=== PATIENT | female | born 1955 | race African-American/Black ===

== ENCOUNTER 2018-04-08 10:04 | Emergency (ER) | payer MEDICAID ==
[~2018-04-08] VITALS: Ht 154.9 cm; Wt 82.0 kg
[~2018-04-08 10:04] MED LIST: ASPI-1159 PO; ATOR20TA PO; CLOP75TA16 PO; COR3 PO; LISI10TA5 PO
[2018-04-08] MEDS ORDERED: KETOROLAC 60MG/2ML VIAL IM ONE (11:30)
[2018-04-08] MEDS ORDERED: TRAMADOL 50MG TABLET PO ONE (14:45)
[2018-04-08 14:51] VITALS: BP 132/59
== END 2018-04-08 15:09 | disposition home or self-care (01) ==
LOC: ER 10:04
DX: M79.604 Pain in right leg (principal); I12.0 Hypertensive chronic kidney disease with stage 5 chronic kidney disease or end stage renal disease; E11.22 Type 2 diabetes mellitus with diabetic chronic kidney disease; N18.6 End stage renal disease; Z88.0 Allergy status to penicillin; Z88.8 Allergy status to other drugs, medicaments and biological substances; Z99.2 Dependence on renal dialysis; Z79.82 Long term (current) use of aspirin
CPT/HCPCS: 73502; 73630; 96372; 99284; J1885

== ENCOUNTER 2018-04-10 01:18 | Emergency (ER) | payer MEDICAID ==
[~2018-04-10] VITALS: Ht 149.9 cm; Wt 82.0 kg
[2018-04-10] MEDS ORDERED: SODIUM CHLORIDE 0.9% 1,000 ML IV ONE (02:28)
[2018-04-10 03:01] LABS: HEMATOCRIT. 41.4 % (36.0-48.0); HEMOGLOBIN. 13.4 g/dL (12.0-16.0); MEAN CORPUSCULAR HEMOGLOBIN 29.5 pg (28.0-32.0); MEAN CORPUSCULAR VOLUME 91.1 fL (81.0-99.0); MEAN PLATELET VOLUME 10.2 fl (7.4-10.4); PLATELET 95 x1000/uL (130-400); RED BLOOD CELL COUNT 4.54 mill/uL (4.2-5.4); RED CELL DISTRIBUTION WIDTH 17.3 % (11.6-14.6)
[2018-04-10] MEDS ORDERED: MORPHINE SULFATE 4 MG/ML CPJ (NOT FOR IM USE) IV NR (03:45)
[2018-04-10 04:24] LABS: NUCLEATED RED BLOOD CELLS 1 /100 WBC
[2018-04-10 04:25] LABS: PLATELET ESTIMATE SLIGHTLY DECREASED
[2018-04-10] MEDS ORDERED: OXYCODONE HCL 5MG TABLET PO ONE (05:45)
[2018-04-10 07:00] VITALS: BP 158/73
== END 2018-04-10 07:00 | disposition home or self-care (01) ==
LOC: ER 01:18
DX: G57.91 Unspecified mononeuropathy of right lower limb (principal); R60.0 Localized edema; E11.22 Type 2 diabetes mellitus with diabetic chronic kidney disease; E11.65 Type 2 diabetes mellitus with hyperglycemia; I13.11 Hypertensive heart and chronic kidney disease without heart failure, with stage 5 chronic kidney disease, or end stage renal disease; N18.6 End stage renal disease; Z99.2 Dependence on renal dialysis; Z88.0 Allergy status to penicillin; Z87.891 Personal history of nicotine dependence; Z91.14 Patient's other noncompliance with medication regimen; Z88.3 Allergy status to other anti-infective agents
CPT/HCPCS: 36415; 80048; 85025; 93971; 96361; 96374; 99285; J2270; J7030

== ENCOUNTER 2019-07-04 12:31 | Emergency (ER) | payer MEDICARE, MEDICAID ==
[~2019-07-04] VITALS: Ht 160 cm; Wt 90.0 kg
[~2019-07-04 12:31] MED LIST changes: -ASPI-1159 PO; +ASPI-1497 PO; -CLOP75TA16 PO; +CLOP75TA4 PO
[2019-07-04] MEDS ORDERED: MORPHINE SULFATE 4 MG/ML CPJ (NOT FOR IM USE) IV STA (15:33)
[2019-07-04] MEDS ORDERED: ONDANSETRON HCL 4MG/2ML INJ IV STA (15:33)
[2019-07-04] MEDS ORDERED: HYDROCODONE/ACETAMINOPHEN 5/325MG TABLET PO ONE (18:00)
[2019-07-04 18:39] VITALS: BP 136/59
== END 2019-07-04 18:42 | disposition home or self-care (01) ==
LOC: ER 12:31
DX: S52.501A Unspecified fracture of the lower end of right radius, initial encounter for closed fracture (principal); M85.841 Other specified disorders of bone density and structure, right hand; E11.9 Type 2 diabetes mellitus without complications; I11.9 Hypertensive heart disease without heart failure; W01.0XXA Fall on same level from slipping, tripping and stumbling without subsequent striking against object, initial encounter; Y93.9 Activity, unspecified; Y92.9 Unspecified place or not applicable; Z88.0 Allergy status to penicillin; Z88.8 Allergy status to other drugs, medicaments and biological substances; Z79.82 Long term (current) use of aspirin
CPT/HCPCS: 29125; 73110; 73130; 96374; 96375; 99283; J2270; J2405